=== PATIENT | male | born 1975 | race Caucasian/White ===

== ENCOUNTER 2016-08-16 11:03 | Emergency (ER) | payer OTHER ==
[2016-08-16 11:32] VITALS: BP 90/76
--- NOTE | 2016-08-16 11:52 | UC ---
Respiratory Complaint HPI - HPI Summary HPI Summary: Fever, cough, congestion, malaise, myalgias brisk onset starting yesterday. Asthmatic. - History of Current Complaint Chief Complaint: UCGeneralIllness Stated Complaint: SINUS,CONGESTION,BODY ACHES Time Seen by Provider: 08/16/16 11:40 Hx Obtained From: Patient, Family/Broadcaster Onset/Duration: Sudden Onset, Lasting Hours Timing: Constant Severity Initially: Moderate Severity Currently: Moderate Aggravating Factors: Deep Breaths Alleviating Factors: Nothing Associated Signs And Symptoms: Positive: Fever, Chills, URI, Nasal Congestion. Negative: Dyspnea, Pleuritic Chest Pain, Hemoptysis, Dizziness, Calf Pain, Calf Swelling, Edema, Hoarseness, Sinus Discomfort - Risk Factors Pulmonary Embolism Risk Factors: Negative - Allergies/Home Medications Allergies/Adverse Reactions: Allergies Allergy/AdvReac Type Severity Reaction Status Date / Time Penicillins Allergy Intermediate Hives Verified 08/16/16 11:33 Home Medications: Home Medications Albuterol HFA INHALER* [Ventolin HFA Inhaler*] 2 puff INH Q4H PRN 08/16/16 [ History Confirmed 08/16/16] PMH/Surg Hx/FS Hx/Imm Hx Endocrine History Of: Reports: Diabetes - type II Cardiovascular History Of: Denies: Hypertension, Pacemaker/ICD Respiratory History Of: Reports: Asthma Neurological History Of: Reports: Seizures - SINCE 03/24 - Surgical History Surgical History: Yes Surgery Procedure, Year, and Place: HERNIA - Family History Known Family History: Positive: Hypertension - Social History Alcohol Use: Weekly Substance Use Type: None Smoking Status (MU): Heavy Every Day Tobacco Smoker Type: Cigarettes Amount Used/How Often: 1/2 PPD Length of Time of Smoking/Using Tobacco: started at age 23 Have You Smoked in the Last Year: Yes Review of Systems All Other Systems Reviewed And Are Negative: Yes Physical Exam Triage Information Reviewed: Yes Appearance: Well-Appearing, Ill-Appearing - non toxic and alert but congested and appears mildly ill., Obese Vital Signs: Initial Vital Signs Temp 97.4 F 08/16/16 11:29 Pulse 74 08/16/16 11:29 Resp 16 08/16/16 11:29 BP 90/76 08/16/16 11:29 Pulse Ox 98 08/16/16 11:29 Vital Signs Reviewed: Yes Eyes: Positive: Conjunctiva Clear. Negative: Conjunctiva Inflamed, Discharge ENT: Positive: Normal ENT inspection, Hearing grossly normal, Pharynx normal, Nasal congestion, Nasal drainage, TMs normal. Negative: Pharyngeal erythema, TM bulging, TM dull, TM red, Tonsillar swelling, Tonsillar exudate, Trismus, Muffled/hoarse voice Neck exam: Normal Neck: Positive: Supple, Nontender, No Lymphadenopathy. Negative: Nuchal Rigidity Respiratory Exam: Normal Respiratory: Positive: Chest non-tender, Lungs clear, Normal breath sounds, No respiratory distress, No accessory muscle use. Negative: Respiratory distress Cardiovascular Exam: Normal Cardiovascular: Positive: RRR, No Murmur, Pulses Normal, Brisk Capillary Refill Abdomen Description: Positive: No Organomegaly, Soft, Bruit - abd tender diffusly upper abd which he state is chronic due to hernia. Musculoskeletal Exam: Normal Musculoskeletal: Positive: Strength Intact, ROM Intact, No Edema Neurological Exam: Normal Neurological: Positive: Alert, Muscle Tone Normal. Negative: Fatigued, Lethargic, Unresponsive, Abnormal Muscle Tone Psychological Exam: Normal Skin Exam: Normal Skin: Negative: rashes UC Diagnostic Evaluation - Laboratory O2 Sat by Pulse Oximetry: 98 Respiratory Course/Dx - Course Course Of Treatment: Clinically c/w influenza. We will treat with tamiflu. He agrees to return for any worsening symptoms which were described in detail. SO was present for conversation. - Differential Dx/Diagnosis Differential Diagnosis/HQI/PQRI: Airway Obstruction, Foreign Body, Aspiration, Asthma, Bronchitis, CHF, Pulmonary Edema, Influenza, Laryngitis, Lower Resp Infection, Pneumothorax, Pulmonary Embolism, Sinusitis Provider Diagnoses: influenza Discharge - Discharge Plan Condition: Fair Disposition: HOME Prescriptions: Oseltamivir CAP* [Tamiflu CAP*] 75 mg PO BID #10 cap Patient Education Materials: Influenza (ED) Referrals: No Primary Care Phys,NOPCP [Primary Care Provider] - Additional Instructions: return here for any worsening symptoms as we discussed.
== END 2016-08-16 12:00 | disposition home or self-care (01) ==
LOC: UCCORT 11:03
DX: J11.1 Influenza due to unidentified influenza virus with other respiratory manifestations (principal); Z88.0 Allergy status to penicillin; F17.210 Nicotine dependence, cigarettes, uncomplicated
CPT/HCPCS: 99212; G0463

== ENCOUNTER 2018-09-10 18:04 | Emergency (ER) | payer SELFPAY ==
[2018-09-10 18:26] VITALS: BP 132/78
[2018-09-10] MEDS ORDERED: DOXYcycline CAP(*) 100 MG PO ONE (18:36)
[2018-09-10] MEDS ORDERED: Lidocaine 1%* 5 ML VIAL INJ ONE (18:36)
--- NOTE | 2018-09-10 19:07 | UC ---
Skin Complaint HPI - HPI Summary HPI Summary: 42-year-old male comes in with a chief complaint of left-sided abdominal skin abscess. He's had this one there for about a week it did drain a little bit on its own over the last day or so. No fevers or chills no known trauma. No known history of MRSA. He does have diabetes. He feels well otherwise. - History of Current Complaint Chief Complaint: UCSkin Time Seen by Provider: 09/10/18 18:30 Stated Complaint: LUMP LEFT SIDE Pain Intensity: 5 - Allergy/Home Medications Allergies/Adverse Reactions: Allergies Allergy/AdvReac Type Severity Reaction Status Date / Time MS Penicillins [Penicillins] Allergy Intermediate Hives Verified 09/10/18 18:20 Penicillins Allergy Hives Verified 09/10/18 18:20 Home Medications: Home Medications Naproxen [Naproxen 500 mg tab] 500 mg PO DAILY PRN 09/10/18 [History Confirmed 09/10/18] metFORMIN* [Glucophage 500 MG TAB *] 500 mg PO BID 09/10/18 [History Confirmed 09/10/18] PMH/Surg Hx/FS Hx/Imm Hx Previously Healthy: Yes Endocrine History: Diabetes Respiratory History: Asthma Neurological History: Seizures - Surgical History Surgical History: Yes Surgery Procedure, Year, and Place: HERNIA - Family History Known Family History: Positive: Hypertension - Social History Alcohol Use: Weekly Substance Use Type: None Smoking Status (MU): Heavy Every Day Tobacco Smoker Type: Cigarettes Amount Used/How Often: 1/4 PPD Length of Time of Smoking/Using Tobacco: started at age 23 Have You Smoked in the Last Year: Yes Review of Systems All Other Systems Reviewed And Are Negative: Yes Constitutional: Positive: Negative Skin: Positive: Other - SEE HPI Eyes: Positive: Negative ENT: Positive: Negative Respiratory: Positive: Negative Cardiovascular: Positive: Negative Gastrointestinal: Positive: Negative Motor: Positive: Negative Neurovascular: Positive: Negative Musculoskeletal: Positive: Negative Neurological: Positive: Negative Psychological: Positive: Negative Is Patient Immunocompromised?: No Physical Exam Triage Information Reviewed: Yes Appearance: Well-Appearing, No Pain Distress, Well-Nourished Vital Signs: Initial Vital Signs Temp 97.6 F 09/10/18 18:21 Pulse 101 09/10/18 18:21 Resp 17 09/10/18 18:21 BP 132/78 09/10/18 18:21 Pulse Ox 99 09/10/18 18:21 Vital Signs Reviewed: Yes Eye Exam: Normal Eyes: Positive: Conjunctiva Clear Neck: Positive: Supple Respiratory: Positive: No respiratory distress Abdomen Description: Positive: Nontender, Soft Musculoskeletal Exam: Normal Musculoskeletal: Positive: Strength Intact, ROM Intact Neurological Exam: Normal Neurological: Positive: Alert, Muscle Tone Normal Psychological Exam: Normal Psychological: Positive: Normal Response To Family, Age Appropriate Behavior Skin: Positive: Other - LEFT ABD ERYTHEMATOUS RAISED 3CM X 2CM FLUCTUANT SKIN MASS Procedures - Incision and Drainage Left Abdomen Anesthesia: Local, Lidocaine - 1% Instrument(s): Scalpel, Needle Packing: Gauze Course/Dx - Course Course Of Treatment: Pus was sent for culture and sensitivity. A large amount of pus was expressed. Packed with iodoform gauze. - Diagnoses Provider Diagnosis: Abscess of skin of abdomen Discharge - Sign-Out/Discharge Documenting (check all that apply): Patient Departure All imaging exams completed and their final reports reviewed: No Studies - Discharge Plan Condition: Stable Disposition: HOME Prescriptions: DOXYcycline CAP(*) [DOXYcycline 100MG CAP(*)] 100 mg PO BID #19 cap Patient Education Materials: Abscess (ED) Referrals: REKHA Ham [Primary Care Provider] - Additional Instructions: FOLLOW UP WITH YOUR DOCTOR. GET REEVALUATED SOONER IF YOUR CONDITION WORSENS OR ANY QUESTIONS OR CONCERNS. - Billing Disposition and Condition Condition: STABLE Disposition: Home
--- NOTE | 2018-09-13 07:16 | UC ---
- Progress Note Progress Note: + MRSA 2+ staph on doxy await sensitivity no change 09/13 ljj Course/Dx - Diagnoses Provider Diagnoses: Abscess of skin of abdomen Discharge - Sign-Out/Discharge Documenting (check all that apply): Post-Discharge Follow Up All imaging exams completed and their final reports reviewed: No Studies - Discharge Plan Condition: Stable Disposition: HOME Prescriptions: DOXYcycline CAP(*) [DOXYcycline 100MG CAP(*)] 100 mg PO BID #19 cap Patient Education Materials: Abscess (ED) Referrals: REKHA Ham [Primary Care Provider] - Additional Instructions: FOLLOW UP WITH YOUR DOCTOR. GET REEVALUATED SOONER IF YOUR CONDITION WORSENS OR ANY QUESTIONS OR CONCERNS. - Billing Disposition and Condition Condition: STABLE Disposition: Home
== END 2018-09-10 19:20 | disposition home or self-care (01) ==
LOC: UCCORT 18:04
DX: L02.211 Cutaneous abscess of abdominal wall (principal); B95.62 Methicillin resistant Staphylococcus aureus infection as the cause of diseases classified elsewhere; E11.9 Type 2 diabetes mellitus without complications; Z79.84 Long term (current) use of oral hypoglycemic drugs; Z88.0 Allergy status to penicillin; F17.210 Nicotine dependence, cigarettes, uncomplicated
CPT/HCPCS: 10060; 87070; 87077; 87186; 87205; 87640; 87641; 99212; A9270-GY; G0463